=== PATIENT | female | born 1975 | race African-American/Black ===

== ENCOUNTER 2016-11-23 16:33 | Emergency (ER) | payer BC, OTHER ==
[~2016-11-23] VITALS: Ht 154.9 cm; Wt 68.0 kg
[2016-11-23] MEDS ORDERED: IRON325 PO (16:47)
[2016-11-23] MEDS ORDERED: CALCIUM 500 +1 EAC5 PO (16:47)
[2016-11-23 17:06] LABS: URINE BILIRUBIN NEGATIVE (Negative); URINE BLOOD NEGATIVE (Negative); URINE COLOR YELLOW; URINE GLUCOSE-RANDOM* NEGATIVE (Negative); URINE KETONES NEGATIVE (Negative); URINE LEUKOCYTES-REFLEX 3+ (Negative); URINE PROTEIN (DIPSTICK) NEGATIVE (Negative); URINE UROBILINOGEN 0.2 E.U./dl (0.2-1.0)
[2016-11-23 17:08] LABS: ABSOLUTE NEUTROPHILS 8.6 thou/uL (1.4-8.2); BASOPHILS 0.9 % (0.0-2.0); EOSINOPHILS 1.3 % (0.0-3.0); HEMATOCRIT 36.8 % (37.0-47.0); LYMPHOCYTES 24.8 % (24.0-44.0); MCH 25.8 pg (26.0-34.0); MCHC 32.7 g/dL (28.0-37.0); MCV 78.9 fL (80.0-100.0); PLATELET COUNT 297 thou/uL (150-400); RBC 4.66 mil/uL (4.20-5.00); WBC 12.8 thou/uL (4.0-11.0)
[2016-11-23 17:13] LABS: MANUAL DIFF NO
[2016-11-23 17:15] LABS: CASTS None Seen /LPF (None Seen); CRYSTALS None Seen /LPF (None Seen); SQUAMOUS >10 Many /LPF (0-3)
[2016-11-23 17:16] LABS: URINE RBC 0-2 Rare /HPF (0-2); URINE WBC-REFLEX >25 Many /HPF (0-5)
[2016-11-23 17:16] LABS: CALCIUM 8.7 mg/dL (8.5-10.1); CREATININE 0.9 mg/dL (0.6-1.0); POTASSIUM 3.5 mmol/L (3.5-5.1)
[2016-11-23 17:22] LABS: TOTAL BILIRUBIN 0.7 mg/dL (<0.1-1.0); TOTAL PROTEIN 7.7 g/dL (6.4-8.2)
[2016-11-23 19:33] VITALS: BP 125/79
[2016-11-25 21:11] LABS: CHLAMYDIA TRACHOMATIS-PCR Negative (Negative); NEISSERIA GONORRHEA-PCR Negative (Negative)
== END 2016-11-23 19:34 | disposition home or self-care (01) ==
LOC: ER 16:33
PROVIDERS: Emergency Medicine
DX: A59.9 Trichomoniasis, unspecified (principal); Z88.1 Allergy status to other antibiotic agents; Z88.8 Allergy status to other drugs, medicaments and biological substances; Z88.6 Allergy status to analgesic agent